=== PATIENT | female | born 1970 | race Caucasian/White ===

== ENCOUNTER 2023-06-01 13:39 | Outpatient (CLI) | payer MEDICARE, OTHER ==
[2023-06-01 15:35] LABS: Hematocrit 40.1 % (34.9-44.5); Hemoglobin 14.1 g/dL (12.0-15.5); Mean Corpuscular HGB CONC 35.2 g/dL (32.0-36.0); Mean Corpuscular Hemoglobin 32.3 pg (27.0-33.0); Mean Corpuscular Volume 91.8 fl (81.6-98.3); Platelet Count 281 10x3/uL (150-450); Red Blood Cell (RBC) Count 4.37 10x6/uL (3.90-5.03); White Blood Cell (WBC) Count 9.2 10x3/uL (3.5-10.5)
[2023-06-01 16:08] LABS: Anion Gap 14 mmol/L (10-20); BUN (Urea Nitrogen) 19 mg/dL (9.8-20.1); Calc. Creatinine Clearance 0 mL/min (70-130); Calcium 9.1 mg/dL (7.8-10.44); Carbon Dioxide 24 mmol/L (22-29); Chloride 102 mmol/L (98-107); Estimated GFR 81; Glucose 108 mg/dL (70-105); Potassium 4.2 mmol/L (3.5-5.1); Sodium 136 mmol/L (136-145)
== END 2023-06-01 13:40 | disposition home or self-care (01) ==
LOC: CSHLAB 13:39
PROVIDERS: ATTEND Surgery
DX: Z01.818 Encounter for other preprocedural examination (principal); L40.50 Arthropathic psoriasis, unspecified
CPT/HCPCS: 80048; 85027; 93005; 93010

== ENCOUNTER 2024-02-25 14:35 | Emergency (ER) | payer MEDICARE, OTHER ==
[2024-02-25] MEDS ORDERED: diphenhydrAMINE 50 MG/ML VIAL ONE (15:22)
[2024-02-25] MEDS ORDERED: Dexamethasone 10 MG/ML VIAL ONE (15:22)
[2024-02-25] MEDS ORDERED: Ketorolac Tromethamine 30 MG (1 mL) VIAL ONE (15:22)
[2024-02-25] MEDS ORDERED: Prochlorperazine 10 MG/2 ML VIAL ONE (15:22)
== END 2024-02-25 16:47 | disposition home or self-care (01) ==
LOC: CSHERS 14:35
DX: G43.909 Migraine, unspecified, not intractable, without status migrainosus (principal); I10 Essential (primary) hypertension; M79.7 Fibromyalgia; E06.3 Autoimmune thyroiditis; M35.00 Sjogren syndrome, unspecified; L40.50 Arthropathic psoriasis, unspecified; F41.9 Anxiety disorder, unspecified; Z86.73 Personal history of transient ischemic attack (TIA), and cerebral infarction without residual deficits; Z98.84 Bariatric surgery status
CPT/HCPCS: 96374; 96375; 99283; J0780; J1100; J1200; J1885

== ENCOUNTER → 2024-02-29 | Emergency (ER) | payer MEDICARE, OTHER | LOC: CSHERS 18:14 | DX: M54.6 Pain in thoracic spine (principal); I10 Essential (primary) hypertension | CPT/HCPCS: 72125; 72128 ==